=== PATIENT | female | born 1950 | race Caucasian/White ===

== ENCOUNTER 2018-05-04 11:10 | Emergency (ER) | payer MEDICARE, OTHER | END 2018-05-04 11:35 | disposition home or self-care (01) | LOC: MADERS 11:10 | DX: J20.9 Acute bronchitis, unspecified (principal) | CPT/HCPCS: 99283 ==

== ENCOUNTER 2021-04-30 09:04 | Outpatient (CLI) | payer MEDICARE, OTHER | END 2021-04-30 09:05 | disposition home or self-care (01) | LOC: MADLAB 09:04 | PROVIDERS: ATTEND Nurse Practitioner Family | DX: R05.9 Cough, unspecified (principal); F17.210 Nicotine dependence, cigarettes, uncomplicated; Z80.1 Family history of malignant neoplasm of trachea, bronchus and lung; R91.8 Other nonspecific abnormal finding of lung field | CPT/HCPCS: 71046 ==

== ENCOUNTER 2021-05-03 15:40 | Outpatient (CLI) | payer MEDICARE, OTHER ==
[2021-05-03 16:26] LABS: Calc. Creatinine Clearance 0 mL/min (70-130)
== END 2021-05-03 15:41 | disposition home or self-care (01) ==
LOC: MADLAB 15:40
PROVIDERS: ATTEND Nurse Practitioner Family
DX: R91.8 Other nonspecific abnormal finding of lung field (principal); J43.9 Emphysema, unspecified; R59.0 Localized enlarged lymph nodes
CPT/HCPCS: 71260; 82565

== ENCOUNTER 2021-07-21 10:33 | Outpatient (CLI) | payer MEDICARE, OTHER | END 2021-07-21 10:34 | disposition home or self-care (01) | LOC: MADRAD 10:33 | PROVIDERS: ATTEND Internal Medicine Pulmonary Disease | DX: J93.9 Pneumothorax, unspecified (principal) | CPT/HCPCS: 71045 ==

== ENCOUNTER 2021-07-23 10:10 | Outpatient (CLI) | payer MEDICARE, OTHER | END 2021-07-23 10:11 | disposition home or self-care (01) | LOC: MADRAD 10:10 | PROVIDERS: ATTEND Radiology Vascular & Interventional Radiology | DX: J93.9 Pneumothorax, unspecified (principal) | CPT/HCPCS: 71046 ==

== ENCOUNTER 2021-07-28 11:23 | Outpatient (CLI) | payer MEDICARE, OTHER | END 2021-07-28 11:24 | disposition home or self-care (01) | LOC: MADRAD 11:23 | PROVIDERS: ATTEND Internal Medicine Pulmonary Disease | DX: R06.00 Dyspnea, unspecified (principal); R91.1 Solitary pulmonary nodule | CPT/HCPCS: 71046 ==

== ENCOUNTER 2024-01-09 15:21 | Emergency (ER) | payer MEDICARE, OTHER ==
[2024-01-09 16:57] LABS: Influenza A by NAA Not Detected (NotDetected); Influenza B by NAA Not Detected (NotDetected); SARS-CoV-2 NAA Rapid Test Not Detected (NotDetected)
[2024-01-09] MEDS ORDERED: Azithromycin 250 MG TAB ONE (17:12)
[2024-01-09] MEDS ORDERED: predniSONE 10 MG TAB ONE (17:12)
[2024-01-09] MEDS ORDERED: Ipratropium/Albuterol 3 ML NEB ONE (17:12)
[2024-01-09] MEDS ORDERED: predniSONE 20 MG TAB ONE (17:13)
== END 2024-01-09 17:37 | disposition home or self-care (01) ==
LOC: MADERS 15:21
DX: J06.9 Acute upper respiratory infection, unspecified (principal); J44.1 Chronic obstructive pulmonary disease with (acute) exacerbation; F17.210 Nicotine dependence, cigarettes, uncomplicated
CPT/HCPCS: 71045; 93005; J7512; J7620

== ENCOUNTER 2025-06-30 14:31 | Emergency (ER) | payer MEDICARE, OTHER ==
[2025-06-30] MEDS ORDERED: Acetaminophen 325 MG TAB ONE (14:53)
[2025-06-30] MEDS ORDERED: Amoxicillin/Potassium Clav 875 MG TAB ONE (15:26)
== END 2025-06-30 15:32 | disposition home or self-care (01) ==
LOC: MADERS 14:31
DX: J22 Unspecified acute lower respiratory infection (principal); D84.821 Immunodeficiency due to drugs; F17.210 Nicotine dependence, cigarettes, uncomplicated
CPT/HCPCS: 71046